=== PATIENT | female | born 1965 | race Caucasian/White ===

== ENCOUNTER → 2017-12-04 | Outpatient (CLI) | payer OTHER | END | disposition home or self-care (01) | LOC: KCIC 11:05 | DX: M43.22 Fusion of spine, cervical region (principal) | CPT/HCPCS: 71046 ==

== ENCOUNTER 2021-07-15 08:37 | Inpatient (IN) | payer SELFPAY ==
[~2021-07-15] VITALS: Ht 170.2 cm; Wt 97.6 kg
[~2021-07-15 08:37] MED LIST: ALPR0.5T PO; ASCO100065 PO; CYCL10TA2 PO; DIPH25CA58 PO; DOCU50CA9 PO; GABA-585 PO; IBUP-1060 PO; LACT1CAP8 PO; LORA10TA3 PO; MULT-445 PO; OXYC1TAB19 PO; OXYC1TAB22 PO; PANT40TA77 PO; PEDI100T PO
[2021-07-15] MEDS ORDERED: IV NORMAL SALINE 1000ML BAG 1,000 ML IV ONE (09:00)
[2021-07-15] MEDS ORDERED: ONDANSETRON PF 4 MG/2 ML VIAL. IVP ONE (09:00)
[2021-07-15] MEDS ORDERED: MORPHINE SULFATE 4 MG/ML INJ. IVP ONE (09:00)
[2021-07-15 09:11] LABS: BASO # 0.1 x10^3/uL (0.0-0.2); BASO % 1 % (0-3); EOS % 0 % (0-3); HEMATOCRIT 42.7 % (36.0-47.0); HEMOGLOBIN 14.8 g/dL (12.0-15.5); LYMPH # 2.5 x10^3/uL (1.0-4.8); LYMPH % 10 % (24-48); MEAN CORPUSCULAR HEMOGLOBIN 30 pg (25-35); MEAN CORPUSCULAR HGB CONC 35 g/dL (31-37); MEAN CORPUSCULAR VOLUME 86 fL (79-100); MONO # 1.6 x10^3/uL (0.0-1.1); MONO % 6 % (0-9); NEUT # 20.6 x10^3/uL (1.8-7.7); NEUT % 83 % (31-73); PLATELET COUNT 312 x10^3/uL (140-400); RED BLOOD COUNT 4.96 x10^6/uL (3.50-5.40); RED CELL DISTRIBUTION WIDTH 13.5 % (11.5-14.5); WHITE BLOOD COUNT 24.9 x10^3/uL (4.0-11.0)
[2021-07-15] MEDS ORDERED: CONTRAST GIVEN. MC PRN (09:15)
[2021-07-15] MEDS ORDERED: IOHEXOL 350 MG/ML 100 ML VIAL. IV ONE (09:15)
[2021-07-15 09:19] LABS: CALCIUM 9.1 mg/dL (8.5-10.1); CREATININE 1.3 mg/dL (0.6-1.0); GFR 42.2; POTASSIUM 3.3 mmol/L (3.5-5.1)
[2021-07-15 09:24] LABS: ALBUMIN 3.6 g/dL (3.4-5.0); TOTAL BILIRUBIN 0.6 mg/dL (0.2-1.0); TOTAL PROTEIN 7.2 g/dL (6.4-8.2)
--- NOTE | 2021-07-15 09:29 | PHYS DOC ---
Past Medical History Additional Past Medical Histor: CHRONIC BACK PAIN, MALROTATION OF DUODENUM Past Surgical History: Appendectomy, Cholecystectomy Smoking Status: Never Smoker Alcohol Use: Occasionally General Adult EDM: Chief Complaint: RECTAL BLEED HPI: HPI: Patient is a 56 year old female with history of HTN, HLD, chronic back pain who presents with acute onset abdominal pain and hematochezia. Onset of pain was yesterday afternoon at approximately 2 PM. Started off intensely in the left lower quadrant. Has become more generalized. Associated with bright red rectal bleeding. States it has been quite a lot of rectal bleeding. She has had small amounts of rectal bleeding in the past but nothing similar to this. She had a normal colonoscopy approximately 7 years ago. She has had nausea but no vomiting. She has had exceedingly poor appetite. Pain started right after eating lunch yesterday. Has only had 4 crackers and some water since. Not on any blood thinners. No history of A. fib, coagulopathy, CVA, CAD, or PAD. No urinary sx. She does have a surgical history of correction of duodenal malrotation, cholecystectomy, and appendectomy. Review of Systems: Review of Systems: Constitutional: Denies fever or chills. [] Eyes: Denies change in visual acuity. [] HENT: Denies nasal congestion or sore throat. [] Respiratory: Denies cough or shortness of breath. [] Cardiovascular: Denies chest pain or edema. [] GI: Reports abdominal pain, nausea, bloody stools. Denies vomiting. [] : Denies dysuria. [] Musculoskeletal: Denies back pain or joint pain. [] Integument: Denies rash. [] Neurologic: Denies headache, focal weakness or sensory changes. [] Endocrine: Denies polyuria or polydipsia. [] Lymphatic: Denies swollen glands. [] Psychiatric: Denies depression or anxiety. [] Heart Score: C/O Chest Pain: No Risk Factors: Risk Factors: DM, Current or recent (<one month) smoker, HTN, HLP, family history of CAD, obesity. Risk Scores: Score 0 - 3: 2.5% MACE over next 6 weeks - Discharge Home Score 4 - 6: 20.3% MACE over next 6 weeks - Admit for Clinical Observation Score 7 - 10: 72.7% MACE over next 6 weeks - Early Invasive Strategies Current Medications: Current Medications Medications (Trade) Dose Ordered Sig/Tiara Start Time Stop Time Status Last Admin Dose Admin Info (CONTRAST GIVEN -- Rx MONITORING) 1 each PRN DAILY PRN 07/15/21 09:15 07/17/21 09:14 Iohexol (Omnipaque 350 Mg/ml) 90 ml 1X ONCE 07/15/21 09:15 07/15/21 09:16 DC Morphine Sulfate (Morphine Sulfate) 4 mg 1X ONCE 07/15/21 09:00 07/15/21 09:01 DC Ondansetron HCl (Zofran) 4 mg 1X ONCE 07/15/21 09:00 07/15/21 09:01 DC Sodium Chloride 1,000 ml @ 1,000 mls/hr 1X ONCE 07/15/21 09:00 07/15/21 09:59 Allergies: Allergies: Allergies Coded Allergies Type Severity Reaction Last Updated Verified Tetanus Vaccines and Toxoid Allergy Intermediate 10/20/14 Yes amoxicillin Allergy Intermediate light headed gi upset 10/20/14 Yes hydromorphone Allergy Intermediate itching puritis 10/20/14 Yes levalbuterol Allergy Intermediate hypertension 10/20/14 Yes levofloxacin Allergy Intermediate joint pain 10/13/14 Yes metaxalone Allergy Intermediate rash 10/13/14 Yes morphine Allergy Intermediate vomiting 10/13/14 Yes nabumetone Allergy Intermediate chest pressure 10/13/14 Yes nitrofurantoin Allergy Intermediate perepheral neuropathy 10/13/14 Yes pregabalin Allergy Intermediate rash 10/13/14 Yes telithromycin Allergy Intermediate blurred vision 10/13/14 Yes zolpidem Allergy Intermediate chest pain cough sob 10/13/14 Yes potassium Adverse Reaction Intermediate BURNING WITH IV 10/13/14 Yes Physical Exam: PE: Constitutional: Appears uncomfortable. [] HENT: Normocephalic, atraumatic [] Eyes: conjunctiva normal, no discharge. [] Neck: Normal range of motion, no tenderness, supple, no stridor. [] Cardiovascular:Heart rate regular rhythm, no murmur [] Lungs & Thorax: Bilateral breath sounds clear to auscultation [] Abdomen: Abdomen soft, reports diffuse abdominal tenderness. No rebound. Slight involuntary guarding. [] Extremities: No tenderness, no cyanosis, no clubbing, ROM intact, no edema. [] Neurologic: Alert and oriented X 3, normal motor function, normal sensory function, no focal deficits noted. [] Psychologic: Affect normal, judgement normal, mood normal. [] Current Patient Data: Labs: Laboratory Tests Test 07/15/21 09:00 White Blood Count 24.9 x10^3/uL (4.0-11.0) H Red Blood Count 4.96 x10^6/uL (3.50-5.40) Hemoglobin 14.8 g/dL (12.0-15.5) Hematocrit 42.7 % (36.0-47.0) Mean Corpuscular Volume 86 fL (79-100) Mean Corpuscular Hemoglobin 30 pg (25-35) Mean Corpuscular Hemoglobin Concent 35 g/dL (31-37) Red Cell Distribution Width 13.5 % (11.5-14.5) Platelet Count 312 x10^3/uL (140-400) Neutrophils (%) (Auto) 83 % (31-73) H Lymphocytes (%) (Auto) 10 % (24-48) L Monocytes (%) (Auto) 6 % (0-9) Eosinophils (%) (Auto) 0 % (0-3) Basophils (%) (Auto) 1 % (0-3) Neutrophils # (Auto) 20.6 x10^3/uL (1.8-7.7) H Lymphocytes # (Auto) 2.5 x10^3/uL (1.0-4.8) Monocytes # (Auto) 1.6 x10^3/uL (0.0-1.1) H Eosinophils # (Auto) 0.0 x10^3/uL (0.0-0.7) Basophils # (Auto) 0.1 x10^3/uL (0.0-0.2) Platelet Estimate Pending Sodium Level 140 mmol/L (136-145) Potassium Level 3.3 mmol/L (3.5-5.1) L Chloride Level 102 mmol/L (98-107) Carbon Dioxide Level 25 mmol/L (21-32) Anion Gap 13 (6-14) Blood Urea Nitrogen 22 mg/dL (7-20) H Creatinine 1.3 mg/dL (0.6-1.0) H Estimated GFR (Cockcroft-Gault) 42.2 BUN/Creatinine Ratio 17 (6-20) Glucose Level 167 mg/dL (70-99) H Calcium Level 9.1 mg/dL (8.5-10.1) Total Bilirubin Pending Aspartate Amino Transferase (AST) Pending Alanine Aminotransferase (ALT) Pending Alkaline Phosphatase Pending Total Protein Pending Albumin Pending Albumin/Globulin Ratio Pending Laboratory Tests 07/15/21 09:00 Laboratory Tests 07/15/21 09:00 Vital Signs: Vital Signs Date Time Temp Pulse Resp B/P (MAP) Pulse Ox O2 Delivery O2 Flow Rate FiO2 07/15/21 09:01 99.4 95 20 127/67 (87) 96 Room Air 99.4 EKG: EKG: Sinus rhythm. Rate 87. Normal axis. Normal intervals. No acute ischemic changes [] Radiology/Procedures: Radiology/Procedures: [] Impression: [id number] [place] [address] IMAGING REPORT Signed PATIENT: OTTO DC LACCOUNT: [id number] : 1965 LOCATION: ER AGE: 56 SEX: F EXAM STATUS: REG ER ORD. PHYSICIAN: JESUS JAMES MD REASON: sudden onset pain, hematochezia, eval mesenteric ischemia PROCEDURE: CT ANGIOGRAPHY ABD AND PELVIS CTA ABDOMEN AND PELVIS WITHOUT IV CONTRAST dated 07/15/2021 9:32 AM Indication:Reason: sudden onset pain, hematochezia, eval mesenteric ischemia / Comparison: No comparison is available. Technique: Helical CTA was performed through the abdomen and pelvis using an infusion of 75 mL Omnipaque 350. Multiplanar and 3-D reformations were obtained. One or more of the following individualized dose reduction techniques were utili zed for this examination: 1. Automated exposure control 2. Adjustment of the mA and/or kV according to patient size 3. Use of iterative reconstruction technique Findings: There is mild dependent atelectasis. The lung bases otherwise are clear. The abdominal aorta is normal in caliber and shows no significant atherosclerosis. The celiac and SMA are widely patent without atherosclerosis. No filling defect such as embolus is seen extending to the distal branches. The LAVERN is patent as well. The renal arteries show no plaque or stenosis. The iliac segments appear normal. The liver contains a cyst in the left lobe. The liver, spleen, pancreas, kidneys and adrenal glands otherwise appear normal. There is a small amount of free fluid adjacent to the liver. The colon shows diffuse wall thickening beginning apparently in the ascending segment but becoming most evident in the distal transverse and descending segment. There is adjacent edema. The cecum is apparently low lying and at the midline in the upper pelvis. There is no evidence of bowel obstruction. No intraluminal contrast extravasation is seen. Images through the pelvis show no abnormality of the distal ureters or bladder. No adenopathy is seen. There is mild free fluid. Colon wall thickening since through the sigmoid colon apparently to the rectum. IMPRESSION: Normal CTA abdomen and pelvis. Diffuse colon wall thickening consistent with nonspecific colitis. Electronically signed by: Chandni Murdock Jr., MD (07/15/2021 10:08 AM) [id number] DICTATED and SIGNED BY: CHANDNI MURDOCK Jr, MD DATE: 07/15/21 [id number] 0 Course & Med Decision Making: Course & Med Decision Making Pertinent Labs and Imaging studies reviewed. (See chart for details) Patient is a 56-year-old woman with past medical history of HTN, HLD, IBS, and surgical history of a correction of duodenal malrotation, cholecystectomy, and appendectomy who presents with acute onset abdominal pain and hematochezia yesterday. On arrival is hemodynamically stable. Appears acutely uncomfortable and has diffuse abdominal tenderness to palpation. Given acute onset and hematochezia considered mesenteric ischemia, ischemic colitis, diverticulitis. Will obtain CTA of the abdomen pelvis to evaluate for acute cause of abdominal pain and specifially for vascular occlusion. [address] shows diffuse colitis. White blood cell count elevated, mild HARSHA, appears dry on labs. Otherwise normal. She has no other infectious symptoms, so I have held on antibiotics. At this time it seems most likely ischemic versus infectious colitis. Will be admitted to the hospital for further management. Phillip Mackay Disclaimer: Thompson Disclaimer: This electronic medical record was generated, in whole or in part, using a voice recognition dictation system. Departure Departure Impression: Primary Impression: Colitis Additional Impressions: Hematochezia Abdominal pain Disposition: ADMITTED INPATIENT Condition: STABLE Referrals: VANNESA MOCK NP (PCP) JESUS JAMES MD Jul 15, 2021 09:29
[2021-07-15] MEDS ORDERED: fentaNYL PF VIAL 100 MCG/2 ML VIAL IVP ONE (09:30)
--- NOTE | 2021-07-15 10:11 | RAD ---
CTA ABDOMEN AND PELVIS WITHOUT IV CONTRAST dated 07/15/2021 9:32 AM Indication:Reason: sudden onset pain, hematochezia, eval mesenteric ischemia / Comparison: No comparison is available. Technique: Helical CTA was performed through the abdomen and pelvis using an infusion of 75 mL Omnipa que 350. Multiplanar and 3-D reformations were obtained. One or more of the following individualized dose reduction techniques were utilized for this examinat ion: 1. Automated exposure control 2. Adjustment of the mA and/or kV according to patient size 3. Use of iterative reconstruction technique Findings: There is mild dependent atelectasis. The lung bases otherwise are clear. The abdominal aorta is janine l in caliber and shows no significant atherosclerosis. The celiac and SMA are widely patent without a therosclerosis. No filling defect such as embolus is seen extending to the distal branches. The LAVERN i s patent as well. The renal arteries show no plaque or stenosis. The iliac segments appear normal. The liver contains a cyst in the left lobe. The liver, spleen, pancreas, kidneys and adrenal glands o therwise appear normal. There is a small amount of free fluid adjacent to the liver. The colon shows diffuse wall thickening beginning apparently in the ascending segment but becoming most evident in th e distal transverse and descending segment. There is adjacent edema. The cecum is apparently low lyin g and at the midline in the upper pelvis. There is no evidence of bowel obstruction. No intraluminal contrast extravasation is seen. Images through the pelvis show no abnormality of the distal ureters or bladder. No adenopathy is seen . There is mild free fluid. Colon wall thickening since through the sigmoid colon apparently to the r ectum. IMPRESSION: Normal CTA abdomen and pelvis. Diffuse colon wall thickening consistent with nonspecific colitis. Electronically signed by: Ivan Murdock Jr., MD (07/15/2021 10:08 AM) [id number]
[2021-07-15 10:20] LABS: % BANDS 15 % (0-9); % LYMPHS 7 % (24-48); % METAS 1 % (0-0); % MONOS 4 % (0-10); % SEGS 73 % (35-66)
[2021-07-15 10:21] LABS: PLT ESTIMATE ADEQUATE (ADEQUATE); SMUDGE CELLS PRESENT; TOXIC GRANULATION SLIGHT
[2021-07-15] MEDS ORDERED: MORPHINE SULFATE 4 MG/ML INJ. IVP PRN (10:30)
[2021-07-15] MEDS ORDERED: ONDANSETRON PF 4 MG/2 ML VIAL. IVP PRN ×2 (10:30→14:15)
[2021-07-15 10:49] LABS: BILIRUBIN,URINE NEGATIVE (NEG); CLARITY,URINE CLEAR; COLOR,URINE YELLOW; NITRITE,URINE NEGATIVE (NEG); PROTEIN,URINE NEGATIVE (NEG-TRACE); UROBILINOGEN,URINE 0.2 mg/dL (0.2 mg/dL)
[2021-07-15 11:02] LABS: BACTERIA,URINE FEW /HPF (0-FEW)
[2021-07-15] MEDS ORDERED: ACETAMINOPHEN 325 MG TABLET. PO PRN (14:15)
[2021-07-15] MEDS ORDERED: MORPHINE SULFATE 2 MG/ML INJ. IV PRN ×2 (14:15)
[2021-07-15] MEDS ORDERED: PIP/TAZO PER PHARMACY MC PRN (14:15)
[2021-07-15] MEDS ORDERED: ZOLPIDEM 5 MG TABLET. PO PRN (14:15)
[2021-07-15] MEDS ORDERED: CALCIUM CARBONATE 500 MG TAB.CHEW PO PRN (14:15)
[2021-07-15] MEDS ORDERED: ELECTROLYTE (NON-ICU) PROTOCOL. MC PRN (14:15)
[2021-07-15] MEDS ORDERED: CETIRIZINE HCL 10 MG TABLET. PO PRN (14:30)
[2021-07-15] MEDS: IV NORMAL SALINE 1000ML BAG 1,000 ML IV SCH (15:12)
[2021-07-15] MEDS: PIPERACILLIN/TAZOBACTAM 3.375 GM in IV NORMAL SALINE 50ML 50 ML IV SCH ×2 (15:13→19:29)
[2021-07-15] MEDS: PANTOPRAZOLE IV PUSH 40 MG VIAL. IVP SCH (15:18)
--- NOTE | 2021-07-15 16:00 | PDOC1 ---
History and Physical Date of Service: DOS: DATE: 07/15/21 TIME: 15:53 Chief Complaint: Problems: (1) Abdominal pain (2) Colitis (3) Hematochezia Chief Complain: Hematochezia History of Present Illness: HPI: This patient is a 56-year-old female who presented to the emergency room this morning due to 1 day history of hematochezia. Patient's is currently admitted to this hospital and she was here visiting him yesterday and ate a salad for lunch. Said a few hours after eating she started to have lower quadrant abdominal pain. Initially left lower quadrant but spread out. Had a bowel movement that evening and it was full of bright red blood. Initially did not present to the emergency room however she had another bloody bowel movement this morning and presented the emergency room. Patient found to have colitis on CT scan. She had 1 further bloody bowel movement in the emergency room. Leukocytosis up to 24. When I evaluated the patient she was resting in bed reporting some ongoing abdominal pain. She told me that she went to the bathroom about an hour ago and there was no blood in it. Still having a fair bit of abdominal pain. Patient denies any history of diverticulitis. She had a correction of a duodenal malrotation many years ago. Normal colonoscopy 7 years ago. Was denying any sort of headache, vision changes, fevers, chest pain, shortness of breath dysuria or joint pain. Past Medical/Surgical History: PMH/PSH: Hypertension, hyperlipidemia, chronic back pain Allergies: Allergies: Coded Allergies: Tetanus Vaccines and Toxoid (Verified Allergy, Intermediate, 10/20/14) amoxicillin (Verified Allergy, Intermediate, light headed gi upset, 10/20/14) hydromorphone (Verified Allergy, Intermediate, itching puritis, 10/20/14) levalbuterol (Verified Allergy, Intermediate, hypertension, 10/20/14) levofloxacin (Verified Allergy, Intermediate, joint pain, 10/13/14) metaxalone (Verified Allergy, Intermediate, rash, 10/13/14) nabumetone (Verified Allergy, Intermediate, chest pressure, 10/13/14) nitrofurantoin (Verified Allergy, Intermediate, perepheral neuropathy, 10/13/14) pregabalin (Verified Allergy, Intermediate, rash, 10/13/14) telithromycin (Verified Allergy, Intermediate, blurred vision, 10/13/14) zolpidem (Verified Allergy, Intermediate, chest pain cough sob, 10/13/14) Family History: Family History: Hypertension Social History: Social History: Occasional alcohol use; denies Bacot or drug use Current Medications: Current Medications Current Medications Sodium Chloride 1,000 ml @ 1,000 mls/hr 1X ONCE IV Last administered on 07/15/21at 09:30; Start 07/15/21 at 09:00; Stop 07/15/21 at 09:59; Status DC Ondansetron HCl (Zofran) 4 mg 1X ONCE IVP Last administered on 07/15/21at 09:29; Start 07/15/21 at 09:00; Stop 07/15/21 at 09:01; Status DC Morphine Sulfate (Morphine Sulfate) 4 mg 1X ONCE IVP Last administered on 07/15/21at 10:33; Start 07/15/21 at 09:00; Stop 07/15/21 at 09:01; Status DC Iohexol (Omnipaque 350 Mg/ml) 90 ml 1X ONCE IV Last administered on 07/15/21at 09:15; Start 07/15/21 at 09:15; Stop 07/15/21 at 09:16; Status DC Info (CONTRAST GIVEN -- Rx MONITORING) 1 each PRN DAILY PRN MC SEE COMMENTS; Start 07/15/21 at 09:15; Stop 07/17/21 at 09:14 Fentanyl Citrate (Fentanyl 2ml Vial) 100 mcg 1X ONCE IVP Last administered on 07/15/21at 09:29; Start 07/15/21 at 09:30; Stop 07/15/21 at 09:31; Status DC Ondansetron HCl (Zofran) 4 mg PRN Q8HRS PRN IVP NAUSEA/VOMITING Last administered on 07/15/21at 10:32; Start 07/15/21 at 10:30; Stop 07/16/21 at 10:29 Morphine Sulfate (Morphine Sulfate) 4 mg PRN Q2HR PRN IVP PAIN; Start 07/15/21 at 10:30; Stop 07/16/21 at 10:29 Piperacillin Sod/ Tazobactam Sod (Zosyn Per Pharmacy) 1 each PRN DAILY PRN MC SEE COMMENTS; Start 07/15/21 at 14:15 Ondansetron HCl (Zofran) 4 mg PRN Q6HRS PRN IVP NAUSEA/VOMITING; Start 07/15/21 at 14:15 Calcium Carbonate/ Glycine (Tums) 500 mg PRN Q3HRS PRN PO UPSET STOMACH; Start 07/15/21 at 14:15 Zolpidem Tartrate (Ambien) 5 mg PRN QHS PRN PO INSOMNIA, MAY REPEAT IN 1HR; Start 07/15/21 at 14:15 Info (Non-Icu Electrolyte Protocol) 1 ea PRN DAILY PRN MC SEE COMMENTS; Start 07/15/21 at 14:15 Oxycodone HCl (Roxicodone) 5 mg PRN Q3HRS PRN PO BREAKTHROUGH PAIN; Start 07/15/21 at 14:15 Morphine Sulfate (Morphine Sulfate) 1 mg PRN Q1HR PRN IV PAIN; Start 07/15/21 at 14:15 Morphine Sulfate (Morphine Sulfate) 2 mg PRN Q1HR PRN IV PAIN Last administered on 07/15/21at 15:14; Start 07/15/21 at 14:15 Acetaminophen (Tylenol) 650 mg PRN Q6HRS PRN PO Headaches, Temp > 101.5F; Start 07/15/21 at 14:15 Senna/Docusate Sodium (Senna Plus) 1 tab BID PO ; Start 07/15/21 at 21:00 Alprazolam (Xanax) 0.5 mg TID PRN PRN PO ANXIETY / AGITATION; Start 07/15/21 at 14:15 Cyclobenzaprine HCl (Flexeril) 10 mg TID PRN PRN PO MUSCLE SPASMS; Start 07/15/21 at 14:15 Cetirizine HCl (ZyrTEC) 10 mg PRN QHS PRN PO ALLERGIES; Start 07/15/21 at 14:30 Pantoprazole Sodium (PROTONIX VIAL for IV PUSH) 40 mg DAILYAC IVP Last administered on 07/15/21at 15:18; Start 07/15/21 at 15:00 Sodium Chloride 1,000 ml @ 150 mls/hr Q6H40M IV Last administered on 07/15/21at 15:12; Start 07/15/21 at 14:15 Piperacillin Sod/ Tazobactam Sod 3.375 gm/Sodium Chloride 50 ml @ 100 mls/hr Q6HRS IV Last administered on 07/15/21at 15:13; Start 07/15/21 at 15:00 Active Scripts Active Reported Percocet 10-325 Mg Tablet (Oxycodone/Acetaminophen) 1 Each Tablet 1 Tab PO PRN Q6HRS PRN Ibuprofen 800 Mg Tablet 800 Mg PO TID PRN Do not take this medication. Do not take until okayed by Dr. Bales. Pantoprazole Sodium (Pantoprazole Sodium) 40 Mg Tablet.dr 20 Mg PO DAILY Last dose 10/21/14 at 9 am. Next dose due 10/22/14 at 9 am. Loratadine 10 Mg Tablet 10 Mg PO HS PRN Last dose 10/20/14 at 9 pm. Next dose due 10/21/14 at 9 pm. Xanax (Alprazolam) 0.5 Mg Tablet 0.5 Mg PO TID PRN Last dose 10/20/14 at 7:45 pm next dose may be taken any time as directed by doctor. Cyclobenzaprine Hcl 10 Mg Tablet 10 Mg PO TID PRN Last dose 10/21/14 at 4:30 am. Next dose may be taken any time as directed by doctor. ROS: Review of Systems Review of System Negative unless in HPI Physical Exam: Vital Signs: Vital Signs Date Time Temp Pulse Resp B/P (MAP) Pulse Ox O2 Delivery O2 Flow Rate FiO2 07/15/21 15:14 98 07/15/21 13:00 74 16 100/49 (66) Room Air 07/15/21 09:01 99.4 99.4 Physcial Exam: GEN: Mild distress but alert and oriented HEENT: Normal cephalic, atraumatic, external auditory canals are patent EYES: Extraocular muscles are intact, pupil are equally round and reactive to light and accommodation MUSCULOSKELETAL: Well developed , well nourished, good range of motion ENDOCRINE: No thyromegaly was palpated LYMPHATICS: No cervical chain or axillary nodes were noted HEMATOPOIETIC: No bruising NECK: Supple, no JVD, no thyromegaly was noted LUNGS: Clear to auscultation in all lung robert without rhonchi or wheezing HEART: RRR, S1, S2 present. Peripheral pulses intact, no obvious murmurs noted ABDOMEN: Generalized tenderness, bowel sounds present, no appreciable hepatomegaly EXTREMITIES: Without clubbing, cyanosis, or edema. Pedal pulses intact. NEUROLOGIC: Normal speech and tone. A&O x 3, moves all extremities, no obvious focal deficits PSYCHIATRIC: Normal affect, normal mood. Stable SKIN: No ulcerations or rashes, good skin turgor, no jaundice VASCULAR: Good capillary refill, neurovascular bundle appears to be intact Labs: Labs: Laboratory Tests Test 07/15/21 09:00 07/15/21 10:40 White Blood Count 24.9 x10^3/uL (4.0-11.0) Red Blood Count 4.96 x10^6/uL (3.50-5.40) Hemoglobin 14.8 g/dL (12.0-15.5) Hematocrit 42.7 % (36.0-47.0) Mean Corpuscular Volume 86 fL (79-100) Mean Corpuscular Hemoglobin 30 pg (25-35) Mean Corpuscular Hemoglobin Concent 35 g/dL (31-37) Red Cell Distribution Width 13.5 % (11.5-14.5) Platelet Count 312 x10^3/uL (140-400) Neutrophils (%) (Auto) 83 % (31-73) Lymphocytes (%) (Auto) 10 % (24-48) Monocytes (%) (Auto) 6 % (0-9) Eosinophils (%) (Auto) 0 % (0-3) Basophils (%) (Auto) 1 % (0-3) Neutrophils # (Auto) 20.6 x10^3/uL (1.8-7.7) Lymphocytes # (Auto) 2.5 x10^3/uL (1.0-4.8) Monocytes # (Auto) 1.6 x10^3/uL (0.0-1.1) Eosinophils # (Auto) 0.0 x10^3/uL (0.0-0.7) Basophils # (Auto) 0.1 x10^3/uL (0.0-0.2) Segmented Neutrophils % 73 % (35-66) Band Neutrophils % 15 % (0-9) Lymphocytes % 7 % (24-48) Monocytes % 4 % (0-10) Metamyelocytes % 1 % (0-0) Smudge Cells Present Toxic Granulation Slight Platelet Estimate Adequate (ADEQUATE) Sodium Level 140 mmol/L (136-145) Potassium Level 3.3 mmol/L (3.5-5.1) Chloride Level 102 mmol/L (98-107) Carbon Dioxide Level 25 mmol/L (21-32) Anion Gap 13 (6-14) Blood Urea Nitrogen 22 mg/dL (7-20) Creatinine 1.3 mg/dL (0.6-1.0) Estimated GFR (Cockcroft-Gault) 42.2 BUN/Creatinine Ratio 17 (6-20) Glucose Level 167 mg/dL (70-99) Lactic Acid Level 1.9 mmol/L (0.4-2.0) Calcium Level 9.1 mg/dL (8.5-10.1) Total Bilirubin 0.6 mg/dL (0.2-1.0) Aspartate Amino Transf (AST/SGOT) 19 U/L (15-37) Alanine Aminotransferase (ALT/SGPT) 26 U/L (14-59) Alkaline Phosphatase 45 U/L (46-116) Total Protein 7.2 g/dL (6.4-8.2) Albumin 3.6 g/dL (3.4-5.0) Albumin/Globulin Ratio 1.0 (1.0-1.7) Urine Collection Type Unknown Urine Color Yellow Urine Clarity Clear Urine pH 5.0 (<5.0-8.0) Urine Specific [place] >=1.030 (1.000-1.030) Urine Protein Negative mg/dL (NEG-TRACE) Urine Glucose (UA) Negative mg/dL (NEG) Urine Ketones (Stick) Negative mg/dL (NEG) Urine Blood Large (NEG) Urine Nitrite Negative (NEG) Urine Bilirubin Negative (NEG) Urine Urobilinogen Dipstick 0.2 mg/dL (0.2 mg/dL) Urine Leukocyte Esterase Negative (NEG) Urine RBC 6-10 /HPF (0-2) Urine WBC 1-4 /HPF (0-4) Urine Squamous Epithelial Cells Mod /LPF Urine Bacteria Few /HPF (0-FEW) Urine Mucus Mod /LPF Laboratory Tests Test 07/15/21 09:00 07/15/21 10:40 White Blood Count 24.9 x10^3/uL (4.0-11.0) Red Blood Count 4.96 x10^6/uL (3.50-5.40) Hemoglobin 14.8 g/dL (12.0-15.5) Hematocrit 42.7 % (36.0-47.0) Mean Corpuscular Volume 86 fL (79-100) Mean Corpuscular Hemoglobin 30 pg (25-35) Mean Corpuscular Hemoglobin Concent 35 g/dL (31-37) Red Cell Distribution Width 13.5 % (11.5-14.5) Platelet Count 312 x10^3/uL (140-400) Neutrophils (%) (Auto) 83 % (31-73) Lymphocytes (%) (Auto) 10 % (24-48) Monocytes (%) (Auto) 6 % (0-9) Eosinophils (%) (Auto) 0 % (0-3) Basophils (%) (Auto) 1 % (0-3) Neutrophils # (Auto) 20.6 x10^3/uL (1.8-7.7) Lymphocytes # (Auto) 2.5 x10^3/uL (1.0-4.8) Monocytes # (Auto) 1.6 x10^3/uL (0.0-1.1) Eosinophils # (Auto) 0.0 x10^3/uL (0.0-0.7) Basophils # (Auto) 0.1 x10^3/uL (0.0-0.2) Segmented Neutrophils % 73 % (35-66) Band Neutrophils % 15 % (0-9) Lymphocytes % 7 % (24-48) Monocytes % 4 % (0-10) Metamyelocytes % 1 % (0-0) Smudge Cells Present Toxic Granulation Slight Platelet Estimate Adequate (ADEQUATE) Sodium Level 140 mmol/L (136-145) Potassium Level 3.3 mmol/L (3.5-5.1) Chloride Level 102 mmol/L (98-107) Carbon Dioxide Level 25 mmol/L (21-32) Anion Gap 13 (6-14) Blood Urea Nitrogen 22 mg/dL (7-20) Creatinine 1.3 mg/dL (0.6-1.0) Estimated GFR (Cockcroft-Gault) 42.2 BUN/Creatinine Ratio 17 (6-20) Glucose Level 167 mg/dL (70-99) Lactic Acid Level 1.9 mmol/L (0.4-2.0) Calcium Level 9.1 mg/dL (8.5-10.1) Total Bilirubin 0.6 mg/dL (0.2-1.0) Aspartate Amino Transf (AST/SGOT) 19 U/L (15-37) Alanine Aminotransferase (ALT/SGPT) 26 U/L (14-59) Alkaline Phosphatase 45 U/L (46-116) Total Protein 7.2 g/dL (6.4-8.2) Albumin 3.6 g/dL (3.4-5.0) Albumin/Globulin Ratio 1.0 (1.0-1.7) Urine Collection Type Unknown Urine Color Yellow Urine Clarity Clear Urine pH 5.0 (<5.0-8.0) Urine Specific [place] >=1.030 (1.000-1.030) Urine Protein Negative mg/dL (NEG-TRACE) Urine Glucose (UA) Negative mg/dL (NEG) Urine Ketones (Stick) Negative mg/dL (NEG) Urine Blood Large (NEG) Urine Nitrite Negative (NEG) Urine Bilirubin Negative (NEG) Urine Urobilinogen Dipstick 0.2 mg/dL (0.2 mg/dL) Urine Leukocyte Esterase Negative (NEG) Urine RBC 6-10 /HPF (0-2) Urine WBC 1-4 /HPF (0-4) Urine Squamous Epithelial Cells Mod /LPF Urine Bacteria Few /HPF (0-FEW) Urine Mucus Mod /LPF Assessment/Plan Assessment/Plan Hematochezia secondary to colitis, abdominal pain, hypertension, hyperlipidemia -1 day history of hematochezia with abdominal pain; patient says she does have a hemorrhoid -Patient says she will occasionally take Bentyl for abdominal cramps -Emergency room patient has colitis on imaging and elevated white blood cell count; no sign of ischemic bowel or diverticulitis -We will start patient on Zosyn for broad intra-abdominal coverage -GI consulted -Pain control ordered -We will do clear liquid diet tonight -DVT prophylaxis -Home meds resumed as indicated Justifications for Admission Other Justification TOMY RIDER MD Jul 15, 2021 16:00
[2021-07-15] MEDS ORDERED: DICYCLOMINE HCL 10 MG CAPSULE PO PRN (17:30)
[2021-07-15] MEDS: oxyCODONE IR 5 MG TABLET PO PRN ×2 (17:30→20:43)
--- NOTE | 2021-07-15 18:50 | EKG ---
[facility] [address] [place] [address] Test Date: 2021-07-15 Test Time: 09:52:37 Pat Name: OTTO DC Department: Room: [facility] Gender: F Accounting Supervisor: : [id number] Requested By: JESUS JAMES Order Number: [id number] Reading MD: Hero Montoya Measurements Intervals [place] Rate: 87 P: 51 ID: [id number] QRS: 36 QRSD: 96 T: 20 QT: 366 QTc: 441 Interpretive Statements SINUS RHYTHM Electronically Signed On 07-17-2021 13:25:38 CDT by Hero Montoya
[2021-07-15 19:00] VITALS: BP 106/32
[2021-07-15] MEDS: CYCLOBENZAPRINE 10 MG TABLET. PO PRN (20:42)
[2021-07-15] MEDS: ALPRAZolam 0.5 MG TABLET PO PRN (20:43)
[2021-07-15] MEDS: SENNOSIDES/DOCUSATE 8.6/50MG TABLET. PO SCH (21:00)
[2021-07-15 22:56] VITALS: BP 110/38
[2021-07-16] VITALS (7 sets, daily range): BP systolic 88–112; BP diastolic 22–40
[2021-07-16] MEDS: PIPERACILLIN/TAZOBACTAM 3.375 GM in IV NORMAL SALINE 50ML 50 ML IV SCH ×5 (00:30→23:19)
[2021-07-16] MEDS: IV NORMAL SALINE 1000ML BAG 1,000 ML IV SCH ×5 (00:30→23:20)
[2021-07-16] MEDS: oxyCODONE IR 5 MG TABLET PO PRN ×4 (01:53→19:59)
[2021-07-16] MEDS: SENNOSIDES/DOCUSATE 8.6/50MG TABLET. PO SCH (07:34)
[2021-07-16] MEDS: PANTOPRAZOLE IV PUSH 40 MG VIAL. IVP SCH (07:56)
--- NOTE | 2021-07-16 09:43 | PDOC2 ---
GI CONSULT Date of Service: DATE: 07/16/21 TIME: 09:42 Reason For Consult: colitis on CT scan, abd pain HPI: HPI: 56 y/o female ill since [place] afternoon. Had some [id number] IBS symptoms after eating a salad. Sharp pain in LLQ (occurred once), lower abdominal cramping (was severe), a lot of soft stool followed by looser/watery stools - eventually associated w/ red blood, then changed to just blood/no stool. Russell hot and sweaty like she was going to pass out. Labs noted leukocytosis and possible UTI. CT noted nonspecific colitis. Cramping has improved some. Passing small amounts of blood (still without stool). Mentions low blood pressure. Occasional heartburn improved w/ Tums PRN. Occasionally coughs while eating. H/o IBS - cramping and irregular bowel habits improved w/ Bentyl. Denies n/v, constipation, melena, and weight loss. EGD years ago, recalls no significant findings. Colonoscopy ~7 years ago somewhere in [place], possibly showed hemorrhoids. She has had some mild bleeding in the past (hemorrhoid-related?) but not like current symptoms. S/p cholecystectomy. Denies liver, pancreas, and PUD history. CT noted left hepatic lobe cyst. Chronic pain on Percocet and ibuprofen. Denies sick contacts, travel, and new medications. PMH: PMH: HTN, chronic pain, GERD, IBS cholecystectomy and appendectomy during surgery for duodenal malrotation, diskectomies, cervical fusion, spinal stimulator FH: Family History: Other (mother - gastroparesis, possible MEN; father - required esopahgeal dilations) Social History: Smoke: No ALCOHOL: rare Drugs: None ROS: GEN: +sweats HEENT: Denies blurred vision, sore throat CV: Denies chest pain RESP: Denies shortness of air, cough GI: Per HPI : Denies hematuria, dysuria ENDO: Denies weight changes NEURO: +felt faint MSK: +chronic neck/joint pain SKIN: Denies jaundice, pruritus Vitals: Vitals: Vital Signs Date Time Temp Pulse Resp B/P (MAP) Pulse Ox O2 Delivery O2 Flow Rate FiO2 07/16/21 07:00 98.5 81 18 97/40 (59) 95 Room Air 98.5 Labs: Labs: Laboratory Tests Test 9/12/21 10:40 Urine Collection Type Unknown Urine Color Yellow Urine Clarity Clear Urine pH 5.0 (<5.0-8.0) Urine Specific [place] >=1.030 (1.000-1.030) Urine Protein Negative mg/dL (NEG-TRACE) Urine Glucose (UA) Negative mg/dL (NEG) Urine Ketones (Stick) Negative mg/dL (NEG) Urine Blood Large (NEG) Urine Nitrite Negative (NEG) Urine Bilirubin Negative (NEG) Urine Urobilinogen Dipstick 0.2 mg/dL (0.2 mg/dL) Urine Leukocyte Esterase Negative (NEG) Urine RBC 6-10 /HPF (0-2) Urine WBC 1-4 /HPF (0-4) Urine Squamous Epithelial Cells Mod /LPF Urine Bacteria Few /HPF (0-FEW) Urine Mucus Mod /LPF Allergies: Coded Allergies: Tetanus Vaccines and Toxoid (Verified Allergy, Intermediate, 10/20/14) amoxicillin (Verified Allergy, Intermediate, light headed gi upset, 10/20/14) hydromorphone (Verified Allergy, Intermediate, itching puritis, 10/20/14) levalbuterol (Verified Allergy, Intermediate, hypertension, 10/20/14) levofloxacin (Verified Allergy, Intermediate, joint pain, 10/13/14) metaxalone (Verified Allergy, Intermediate, rash, 10/13/14) nabumetone (Verified Allergy, Intermediate, chest pressure, 10/13/14) nitrofurantoin (Verified Allergy, Intermediate, perepheral neuropathy, 10/13/14) pregabalin (Verified Allergy, Intermediate, rash, 10/13/14) telithromycin (Verified Allergy, Intermediate, blurred vision, 10/13/14) zolpidem (Verified Allergy, Intermediate, chest pain cough sob, 10/13/14) Medications: Current Medications Medications (Trade) Dose Ordered Sig/Tiara Route PRN Reason Start Time Stop Time Status Last Admin Dose Admin Ondansetron HCl (Zofran) 4 mg PRN Q8HRS PRN IVP NAUSEA/VOMITING 07/15/21 10:30 07/16/21 10:29 07/15/21 10:32 Oxycodone HCl (Roxicodone) 5 mg PRN Q3HRS PRN PO BREAKTHROUGH PAIN 07/15/21 14:15 07/16/21 05:34 Morphine Sulfate (Morphine Sulfate) 2 mg PRN Q1HR PRN IV PAIN 07/15/21 14:15 07/15/21 15:14 Alprazolam (Xanax) 0.5 mg TID PRN PRN PO ANXIETY / AGITATION 07/15/21 14:15 07/15/21 20:43 Cyclobenzaprine HCl (Flexeril) 10 mg TID PRN PRN PO MUSCLE SPASMS 07/15/21 14:15 07/15/21 20:42 Pantoprazole Sodium (PROTONIX VIAL for IV PUSH) 40 mg DAILYAC IVP 07/15/21 15:00 07/16/21 07:56 Sodium Chloride 1,000 ml @ 150 mls/hr Q6H40M IV 07/15/21 14:15 07/16/21 07:56 Piperacillin Sod/ Tazobactam Sod 3.375 gm/Sodium Chloride 50 ml @ 100 mls/hr Q6HRS IV 07/15/21 15:00 07/16/21 05:18 Dicyclomine HCl (Bentyl) 20 mg PRN TID PRN PO ABDOMINAL CRAMPS 07/15/21 17:30 07/15/21 17:28 Imaging: Imaging: CTA A/P 07/15 Findings: There is mild dependent atelectasis. The lung bases otherwise are clear. The abdominal aorta is normal in caliber and shows no significant atherosclerosis. The celiac and SMA are widely patent without atherosclerosis. No filling defect such as embolus is seen extending to the distal branches. The LAVERN is patent as well. The renal arteries show no plaque or stenosis. The iliac segments appear normal. The liver contains a cyst in the left lobe. The liver, spleen, pancreas, kidneys and adrenal glands otherwise appear normal. There is a small amount of free fluid adjacent to the liver. The colon shows diffuse wall thickening beginning apparently in the ascending segment but becoming most evident in the distal transverse and descending segment. There is adjacent edema. The cecum is appare ntly low lying and at the midline in the upper pelvis. There is no evidence of bowel obstruction. No intraluminal contrast extravasation is seen. Images through the pelvis show no abnormality of the distal ureters or bladder. No adenopathy is seen. There is mild free fluid. Colon wall thickening since through the sigmoid colon apparently to the rectum. IMPRESSION: Normal CTA abdomen and pelvis. Diffuse colon wall thickening consistent with nonspecific colitis. PE: GEN: NAD HEENT: Atraumatic, PERRL LUNGS: CTAB HEART: RRR ABD: NABS, S/ND, currently non-tender EXTREMITY: No edema SKIN: No rashes, no jaundice NEURO/PSYCH: A & O 3 OTHER: noted light red/watery/yellow liquid collected in toilet A/P: A/P: Diarrhea/hematochezia, lower abdominal pain Leukocytosis, ?HARSHA Abnormal CT - "colitis" - on IV atbx per primary Occasional heartburn CRC screen - reports normal colonoscopy 7 years ago H/o IBS - improved w/ Bentyl S/p cholecystectomy Left hepatic cyst - noted on CT Chronic pain -- ?infectious ?ischemic Check stool studies, follow labs (will order recheck now). Okay for clear liquid diet. Agree w/ PPI - can change to PO. Doesn't need Senna - will stop. THERESA BOSTON Jul 16, 2021 09:43
[2021-07-16 10:29] LABS: CALCIUM 7.5 mg/dL (8.5-10.1); CREATININE 1.2 mg/dL (0.6-1.0); GFR 46.3
[2021-07-16 10:31] LABS: POTASSIUM 2.7 mmol/L (3.5-5.1)
--- NOTE | 2021-07-16 10:38 | NUR ---
SW following. Discussed with RN, pt from home with , room air, clear liquid diet. COVID-19 negative. Med Assist following for self pay status. SW will continue to follow.
[2021-07-16 10:40] LABS: HEMATOCRIT 33.2 % (36.0-47.0); RED BLOOD COUNT 3.74 x10^6/uL (3.50-5.40); RED CELL DISTRIBUTION WIDTH 13.8 % (11.5-14.5); WHITE BLOOD COUNT 16.6 x10^3/uL (4.0-11.0)
[2021-07-16] MEDS ORDERED: POTASSIUM CHLORIDE 20 MEQ TABLET.ER. PO ONE (11:00)
[2021-07-16] MEDS: LACTOBACILLUS RHAMNOSUS GG 1 CAPSULE. PO SCH ×2 (11:55→19:59)
--- NOTE | 2021-07-16 12:14 | PDOC ---
[facility] PROGRESS NOTE Date of Service DOS: DATE: 07/16/21 TIME: 12:07 Chief Complaint Chief Complaint Colitis Hematochezia HTN HLD Plan: Consultation to GI Continue Zosyn for broad intra-abdominal coverage Continue clear liquid diet -DVT prophylaxis -Home meds resumed as indicated History of Present Illness History of Present Illness This patient is a 56-year-old female who presented to the emergency room this morning due to 1 day history of hematochezia. Patient's is currently admitted to this hospital and she was here visiting him yesterday and ate a salad for lunch. Said a few hours after eating she started to have lower quadrant abdominal pain. Initially left lower quadrant but spread out. Had a bowel movement that evening and it was full of bright red blood. Initially did not present to the emergency room however she had another bloody bowel movement this morning and presented the emergency room. Patient found to have colitis on CT scan. She had 1 further bloody bowel movement in the emergency room. Leukocytosis up to 24. When I evaluated the patient she was resting in bed reporting some ongoing abdominal pain. She told me that she went to the bathroom about an hour ago and there was no blood in it. Still having a fair bit of abdominal pain. Patient denies any history of diverticulitis. She had a correction of a duodenal malrotation many years ago. Normal colonoscopy 7 years ago. Was denying any sort of headache, vision changes, fevers, chest pain, shortness of breath dysuria or joint pain. 07/16/2021: Afebrile, currently breathing room air. Still reports episodes of diarrhea; stool studies pending. Patient also complains of cough, headache, and body aches; will swab for COVID-19. Leukocytosis improved; WBC 16.6 today. Potassium 2.7 today, hemoglobin 11.0. Will replace potassium. Continue Zosyn. Continue with clear liquid diet and PPI. Vitals/I&O Vitals/I&O: Vital Signs Date Time Temp Pulse Resp B/P (MAP) Pulse Ox O2 Delivery O2 Flow Rate FiO2 07/16/21 11:20 100/39 (59) 07/16/21 11:00 98.3 81 18 94 Room Air 98.3 I & O 07/15/21 07/15/21 07/16/21 15:00 23:00 07:00 Intake Total 1000 ml 600 ml Balance 1000 ml 600 ml Physical Exam General: Alert, mild distress Heart: Regular rate Lungs: Clear Abdomen: Soft, No hepatosplenomegaly Extremities: No clubbing, No cyanosis Skin: No rashes, No breakdown Labs Labs: Laboratory Tests Test 07/16/21 09:55 White Blood Count 16.6 x10^3/uL (4.0-11.0) Red Blood Count 3.74 x10^6/uL (3.50-5.40) Hemoglobin 11.0 g/dL (12.0-15.5) Hematocrit 33.2 % (36.0-47.0) Mean Corpuscular Volume 89 fL (79-100) Mean Corpuscular Hemoglobin 29 pg (25-35) Mean Corpuscular Hemoglobin Concent 33 g/dL (31-37) Red Cell Distribution Width 13.8 % (11.5-14.5) Platelet Count 206 x10^3/uL (140-400) Sodium Level 142 mmol/L (136-145) Potassium Level 2.7 mmol/L (3.5-5.1) Chloride Level 106 mmol/L (98-107) Carbon Dioxide Level 31 mmol/L (21-32) Anion Gap 5 (6-14) Blood Urea Nitrogen 14 mg/dL (7-20) Creatinine 1.2 mg/dL (0.6-1.0) Estimated GFR (Cockcroft-Gault) 46.3 Glucose Level 135 mg/dL (70-99) Calcium Level 7.5 mg/dL (8.5-10.1) Iron Level 15 ug/dL (50-170) Total Iron Binding Capacity 158 ug/dL (250-450) Iron Saturation 9 % (15-34) Assessment and Plan Assessmemt and Plan Problems Medical Problems: (1) Abdominal pain Status: Acute (2) Colitis Status: Acute (3) Hematochezia Status: Acute Comment Review of Relevant I have reviewed the following items adam (where applicable) has been applied. Medications: Current Medications Medications (Trade) Dose Ordered Sig/Tiara Route PRN Reason Start Time Stop Time Status Last Admin Dose Admin Oxycodone HCl (Roxicodone) 5 mg PRN Q3HRS PRN PO BREAKTHROUGH PAIN 07/15/21 14:15 07/16/21 05:34 Morphine Sulfate (Morphine Sulfate) 2 mg PRN Q1HR PRN IV MODERATE TO SEVERE PAIN 07/15/21 14:15 07/15/21 15:14 Alprazolam (Xanax) 0.5 mg TID PRN PRN PO ANXIETY / AGITATION 07/15/21 14:15 07/15/21 20:43 Cyclobenzaprine HCl (Flexeril) 10 mg TID PRN PRN PO MUSCLE SPASMS 07/15/21 14:15 07/15/21 20:42 Pantoprazole Sodium (PROTONIX VIAL for IV PUSH) 40 mg DAILYAC IVP 07/15/21 15:00 07/16/21 09:45 DC 07/16/21 07:56 Sodium Chloride 1,000 ml @ 150 mls/hr Q6H40M IV 07/15/21 14:15 07/16/21 07:56 Piperacillin Sod/ Tazobactam Sod 3.375 gm/Sodium Chloride 50 ml @ 100 mls/hr Q6HRS IV 07/15/21 15:00 07/16/21 10:26 Dicyclomine HCl (Bentyl) 20 mg PRN TID PRN PO ABDOMINAL CRAMPS 07/15/21 17:30 07/15/21 17:28 Potassium Chloride (Klor-Con) 40 meq 1X ONCE PO 07/16/21 11:00 07/16/21 11:01 DC 07/16/21 11:55 Lactobacillus Rhamnosus (Culturelle) 1 cap BID PO 07/16/21 12:00 07/16/21 11:55 Justifications for Admission Other Justification DENISE JACOBS MD Jul 16, 2021 12:14
[2021-07-16] MEDS: CYCLOBENZAPRINE 10 MG TABLET. PO PRN (15:32)
[2021-07-16] MEDS: POTASSIUM CHLORIDE 10MEQ 100 ML IV SCH ×2 (19:31→21:11)
--- NOTE | 2021-07-16 20:00 | NUR ---
Patient unable to tolerate IV Potassium at 100mls/hr; rate slowed to 50mls/hr. IV site remains WNL and no redness or swelling noted.
[2021-07-16] MEDS: ALPRAZolam 0.5 MG TABLET PO PRN (20:03)
[2021-07-17] MEDS: POTASSIUM CHLORIDE 10MEQ 100 ML IV SCH ×2 (00:02→02:05)
[2021-07-17] MEDS: CYCLOBENZAPRINE 10 MG TABLET. PO PRN ×2 (00:03→22:31)
[2021-07-17] MEDS: oxyCODONE IR 5 MG TABLET PO PRN ×3 (00:03→15:30)
[2021-07-17 03:00] VITALS: BP 109/49
[2021-07-17 04:44] LABS: BASO % 0 % (0-3); EOS # 0.1 x10^3/uL (0.0-0.7); EOS % 1 % (0-3); HEMATOCRIT 30.8 % (36.0-47.0); HEMOGLOBIN 10.4 g/dL (12.0-15.5); LYMPH # 3.8 x10^3/uL (1.0-4.8); LYMPH % 24 % (24-48); MEAN CORPUSCULAR HEMOGLOBIN 30 pg (25-35); MEAN CORPUSCULAR HGB CONC 34 g/dL (31-37); MEAN CORPUSCULAR VOLUME 88 fL (79-100); MONO % 7 % (0-9); NEUT # 10.6 x10^3/uL (1.8-7.7); NEUT % 68 % (31-73); PLATELET COUNT 191 x10^3/uL (140-400); RED CELL DISTRIBUTION WIDTH 13.5 % (11.5-14.5); WHITE BLOOD COUNT 15.6 x10^3/uL (4.0-11.0)
[2021-07-17 05:00] LABS: CALCIUM 7.7 mg/dL (8.5-10.1); CREATININE 0.9 mg/dL (0.6-1.0); GFR 64.5; POTASSIUM 3.5 mmol/L (3.5-5.1)
[2021-07-17] MEDS: PIPERACILLIN/TAZOBACTAM 3.375 GM in IV NORMAL SALINE 50ML 50 ML IV SCH ×3 (06:13→18:46)
[2021-07-17] MEDS: IV NORMAL SALINE 1000ML BAG 1,000 ML IV SCH ×3 (06:13→22:31)
[2021-07-17 07:15] VITALS: BP 128/41
[2021-07-17] MEDS: PANTOPRAZOLE 40 MG TABLET.DR. PO SCH (08:28)
[2021-07-17] MEDS: LACTOBACILLUS RHAMNOSUS GG 1 CAPSULE. PO SCH ×2 (08:28→22:31)
[2021-07-17] MEDS: POTASSIUM CHLORIDE 20 MEQ TABLET.ER. PO SCH (08:29)
[2021-07-17 10:23] VITALS: BP 110/45
--- NOTE | 2021-07-17 10:27 | PDOC ---
Date of Service: DATE: 07/17/21 TIME: 10:23 Subjective: Subjective: Feels brandyn "blah," gut still aches. Does admit it's a little better today. No n/v, no bleeding - hasn't stooled today. Tolerating clears - chicken broth gave her heartburn last night. Objective: Vital Signs: Vital Signs Date Time Temp Pulse Resp B/P (MAP) Pulse Ox O2 Delivery O2 Flow Rate FiO2 07/17/21 07:15 98.3 82 22 128/41 (70) 96 Room Air 98.3 Labs: Laboratory Tests Test 07/16/21 10:30 07/16/21 12:39 07/16/21 17:20 07/17/21 03:38 Stool Campylobacter PCR Negative Stool E. coli Shiga Toxins (PCR) Negative Stool Salmonella PCR Negative Stool Shigella PCR Negative Clostridium difficile Toxin (PCR) Negative SARS-CoV-2 RNA (LORENZO) Negative SARS-CoV-2 Antigen (Rapid) Negative Potassium Level 2.9 mmol/L 3.5 mmol/L Magnesium Level 1.7 mg/dL White Blood Count 15.6 x10^3/uL Red Blood Count 3.50 x10^6/uL Hemoglobin 10.4 g/dL Hematocrit 30.8 % Mean Corpuscular Volume 88 fL Mean Corpuscular Hemoglobin 30 pg Mean Corpuscular Hemoglobin Concent 34 g/dL Red Cell Distribution Width 13.5 % Platelet Count 191 x10^3/uL Neutrophils (%) (Auto) 68 % Lymphocytes (%) (Auto) 24 % Monocytes (%) (Auto) 7 % Eosinophils (%) (Auto) 1 % Basophils (%) (Auto) 0 % Neutrophils # (Auto) 10.6 x10^3/uL Lymphocytes # (Auto) 3.8 x10^3/uL Monocytes # (Auto) 1.0 x10^3/uL Eosinophils # (Auto) 0.1 x10^3/uL Basophils # (Auto) 0.0 x10^3/uL Sodium Level 140 mmol/L Chloride Level 105 mmol/L Carbon Dioxide Level 30 mmol/L Anion Gap 5 Blood Urea Nitrogen 7 mg/dL Creatinine 0.9 mg/dL Estimated GFR (Cockcroft-Gault) 64.5 Glucose Level 86 mg/dL Calcium Level 7.7 mg/dL PE: GEN: NAD LUNGS: CTAB HEART: RRR ABD: NABS, S/ND/NT NEURO/PSYCH: A & O 3 A/P: Lower abdominal pain - better Diarrhea/hematochezia - resolved? - stool studies negative Leukocytosis (better), ACD/ADIN Colitis on CT H/o IBS, chronic pain Hypokalemia - resolved -- Try advancing diet. Consider outpt 'scopes. Justicifation of Admission Dx: Justifications for Admission: Justification of Admission Dx: Yes THERESA BOSTON Jul 17, 2021 10:27
[2021-07-17] MEDS ORDERED: MAGNESIUM SULFATE 1GM 100 ML IV ONE (11:30)
--- NOTE | 2021-07-17 12:34 | PDOC ---
[facility] PROGRESS NOTE Date of Service DOS: DATE: 07/17/21 TIME: 12:30 Chief Complaint Chief Complaint Colitis Hematochezia HTN HLD Plan: Consultation to GI Continue Zosyn for broad intra-abdominal coverage Continue clear liquid diet -DVT prophylaxis -Home meds resumed as indicated History of Present Illness History of Present Illness This patient is a 56-year-old female who presented to the emergency room this morning due to 1 day history of hematochezia. Patient's is currently admitted to this hospital and she was here visiting him yesterday and ate a salad for lunch. Said a few hours after eating she started to have lower quadrant abdominal pain. Initially left lower quadrant but spread out. Had a bowel movement that evening and it was full of bright red blood. Initially did not present to the emergency room however she had another bloody bowel movement this morning and presented the emergency room. Patient found to have colitis on CT scan. She had 1 further bloody bowel movement in the emergency room. Leukocytosis up to 24. When I evaluated the patient she was resting in bed reporting some ongoing abdominal pain. She told me that she went to the bathroom about an hour ago and there was no blood in it. Still having a fair bit of abdominal pain. Patient denies any history of diverticulitis. She had a correction of a duodenal malrotation many years ago. Normal colonoscopy 7 years ago. Was denying any sort of headache, vision changes, fevers, chest pain, shortness of breath dysuria or joint pain. 07/16/2021: Afebrile, currently breathing room air. Still reports episodes of diarrhea; stool studies pending. Patient also complains of cough, headache, and body aches; will swab for COVID-19. Leukocytosis improved; WBC 16.6 today. Potassium 2.7 today, hemoglobin 11.0. Will replace potassium. Continue Zosyn. Continue with clear liquid diet and PPI. 07/17/2021: Patient denies any further bloody stools. Stool studies have been negative. Magnesium 1.7, will replace. Leukocytosis continues to improve. She is feeling better, will try advancing diet. Continue IV Zosyn. When able to tolerate will discharge on Cipro and Flagyl, with GI follow-up for outpatient scope. Vitals/I&O Vitals/I&O: Vital Signs Date Time Temp Pulse Resp B/P (MAP) Pulse Ox O2 Delivery O2 Flow Rate FiO2 07/17/21 10:23 99.6 79 16 110/45 (66) 93 Room Air 99.6 I & O 07/16/21 07/16/21 07/17/21 15:00 23:00 07:00 Intake Total 320 ml 700 ml 590 ml Balance 320 ml 700 ml 590 ml Physical Exam General: Alert, mild distress Heart: Regular rate Lungs: Clear Abdomen: Soft, No hepatosplenomegaly Extremities: No clubbing, No cyanosis Skin: No rashes, No breakdown Labs Labs: Laboratory Tests Test 07/16/21 12:39 07/16/21 17:20 07/17/21 03:38 SARS-CoV-2 RNA (LORENZO) Negative (Negative) SARS-CoV-2 Antigen (Rapid) Negative (NEGATIVE) Potassium Level 2.9 mmol/L (3.5-5.1) 3.5 mmol/L (3.5-5.1) Magnesium Level 1.7 mg/dL (1.8-2.4) White Blood Count 15.6 x10^3/uL (4.0-11.0) Red Blood Count 3.50 x10^6/uL (3.50-5.40) Hemoglobin 10.4 g/dL (12.0-15.5) Hematocrit 30.8 % (36.0-47.0) Mean Corpuscular Volume 88 fL (79-100) Mean Corpuscular Hemoglobin 30 pg (25-35) Mean Corpuscular Hemoglobin Concent 34 g/dL (31-37) Red Cell Distribution Width 13.5 % (11.5-14.5) Platelet Count 191 x10^3/uL (140-400) Neutrophils (%) (Auto) 68 % (31-73) Lymphocytes (%) (Auto) 24 % (24-48) Monocytes (%) (Auto) 7 % (0-9) Eosinophils (%) (Auto) 1 % (0-3) Basophils (%) (Auto) 0 % (0-3) Neutrophils # (Auto) 10.6 x10^3/uL (1.8-7.7) Lymphocytes # (Auto) 3.8 x10^3/uL (1.0-4.8) Monocytes # (Auto) 1.0 x10^3/uL (0.0-1.1) Eosinophils # (Auto) 0.1 x10^3/uL (0.0-0.7) Basophils # (Auto) 0.0 x10^3/uL (0.0-0.2) Sodium Level 140 mmol/L (136-145) Chloride Level 105 mmol/L (98-107) Carbon Dioxide Level 30 mmol/L (21-32) Anion Gap 5 (6-14) Blood Urea Nitrogen 7 mg/dL (7-20) Creatinine 0.9 mg/dL (0.6-1.0) Estimated GFR (Cockcroft-Gault) 64.5 Glucose Level 86 mg/dL (70-99) Calcium Level 7.7 mg/dL (8.5-10.1) Assessment and Plan Assessmemt and Plan Problems Medical Problems: (1) Abdominal pain Status: Acute (2) Colitis Status: Acute (3) Hematochezia Status: Acute Comment Review of Relevant I have reviewed the following items adam (where applicable) has been applied. Medications: Current Medications Medications (Trade) Dose Ordered Sig/Tiara Route PRN Reason Start Time Stop Time Status Last Admin Dose Admin Pantoprazole Sodium (Protonix) 40 mg DAILYAC PO 07/17/21 07:30 07/17/21 08:28 Potassium Chloride (Klor-Con) 40 meq DAILYWBKFT PO 07/17/21 08:00 07/17/21 08:29 Potassium Chloride/Water 100 ml @ 100 mls/hr Q1H IV 07/16/21 19:00 07/16/21 22:59 DC 07/17/21 02:05 Magnesium Sulfate/ Dextrose 100 ml @ 100 mls/hr 1X ONCE IV 07/17/21 11:30 07/17/21 12:29 DC 07/17/21 12:04 Justifications for Admission Other Justification DENISE JACOBS MD Jul 17, 2021 12:34
[2021-07-17 14:28] VITALS: BP 117/46
[2021-07-17 19:20] VITALS: BP 114/43
[2021-07-17] MEDS: ALPRAZolam 0.5 MG TABLET PO PRN (22:31)
[2021-07-17 23:12] VITALS: BP 113/45
[2021-07-18] MEDS: PIPERACILLIN/TAZOBACTAM 3.375 GM in IV NORMAL SALINE 50ML 50 ML IV SCH ×3 (00:28→13:31)
[2021-07-18] MEDS: IV NORMAL SALINE 1000ML BAG 1,000 ML IV SCH ×2 (02:15→05:14)
[2021-07-18] MEDS: oxyCODONE IR 5 MG TABLET PO PRN ×2 (02:48→09:33)
[2021-07-18 03:03] VITALS: BP 114/50
[2021-07-18] MEDS: PANTOPRAZOLE 40 MG TABLET.DR. PO SCH (05:13)
[2021-07-18 07:34] VITALS: BP 129/54
[2021-07-18] MEDS: POTASSIUM CHLORIDE 20 MEQ TABLET.ER. PO SCH (09:11)
[2021-07-18] MEDS: LACTOBACILLUS RHAMNOSUS GG 1 CAPSULE. PO SCH (09:11)
--- NOTE | 2021-07-18 09:57 | NUR ---
SW following. Discussed with RN, pt from home with , room air, full liquid diet. RN advised no SW needs, anticipates discharge home today with self care.
--- NOTE | 2021-07-18 10:04 | PDOC ---
Date of Service: DATE: 07/18/21 TIME: 10:01 Subjective: Subjective: Had a splattery stool without blood. Some increased abdominal aching overnight. Better this morning. Trying full liquids. Thinks advancing diet yesterday (from clears to fulls) made pain worse. Thinks she's better overall. Taking PO pain meds. Objective: Vital Signs: Vital Signs Date Time Temp Pulse Resp B/P (MAP) Pulse Ox O2 Delivery O2 Flow Rate FiO2 07/18/21 07:34 98.0 70 16 129/54 (79) 94 Room Air 98.0 PE: GEN: NAD LUNGS: CTAB HEART: RRR ABD: S/ND/NT NEURO/PSYCH: A & O 3 A/P: Colitis - some lingering lower abd discomfort, diarrhea/hematochezia resolving ACD/ADIN H/o IBS and chronic pain -- Continue support, consider DC soon. Justicifation of Admission Dx: Justifications for Admission: Justification of Admission Dx: Yes THERESA BOSTON Jul 18, 2021 10:03
[2021-07-18 10:41] LABS: BASO % 0 % (0-3); EOS # 0.2 x10^3/uL (0.0-0.7); EOS % 3 % (0-3); HEMATOCRIT 30.4 % (36.0-47.0); HEMOGLOBIN 10.2 g/dL (12.0-15.5); LYMPH # 1.9 x10^3/uL (1.0-4.8); LYMPH % 23 % (24-48); MEAN CORPUSCULAR HEMOGLOBIN 29 pg (25-35); MEAN CORPUSCULAR HGB CONC 34 g/dL (31-37); MEAN CORPUSCULAR VOLUME 87 fL (79-100); MONO # 0.7 x10^3/uL (0.0-1.1); MONO % 9 % (0-9); NEUT # 5.3 x10^3/uL (1.8-7.7); NEUT % 65 % (31-73); PLATELET COUNT 222 x10^3/uL (140-400); RED CELL DISTRIBUTION WIDTH 13.2 % (11.5-14.5); WHITE BLOOD COUNT 8.1 x10^3/uL (4.0-11.0)
[2021-07-18 10:58] LABS: CALCIUM 7.6 mg/dL (8.5-10.1); CREATININE 0.7 mg/dL (0.6-1.0); GFR 86.2
--- NOTE | 2021-07-18 11:10 | PDOC ---
[facility] PROGRESS NOTE Date of Service DOS: DATE: 07/18/21 TIME: 11:07 Chief Complaint Chief Complaint Colitis Hematochezia HTN HLD Plan: Consultation to GI Continue Zosyn for broad intra-abdominal coverage Continue clear liquid diet -DVT prophylaxis -Home meds resumed as indicated History of Present Illness History of Present Illness This patient is a 56-year-old female who presented to the emergency room this morning due to 1 day history of hematochezia. Patient's is currently admitted to this hospital and she was here visiting him yesterday and ate a salad for lunch. Said a few hours after eating she started to have lower quadrant abdominal pain. Initially left lower quadrant but spread out. Had a bowel movement that evening and it was full of bright red blood. Initially did not present to the emergency room however she had another bloody bowel movement this morning and presented the emergency room. Patient found to have colitis on CT scan. She had 1 further bloody bowel movement in the emergency room. Leukocytosis up to 24. When I evaluated the patient she was resting in bed reporting some ongoing abdominal pain. She told me that she went to the bathroom about an hour ago and there was no blood in it. Still having a fair bit of abdominal pain. Patient denies any history of diverticulitis. She had a correction of a duodenal malrotation many years ago. Normal colonoscopy 7 years ago. Was denying any sort of headache, vision changes, fevers, chest pain, shortness of breath dysuria or joint pain. 07/16/2021: Afebrile, currently breathing room air. Still reports episodes of diarrhea; stool studies pending. Patient also complains of cough, headache, and body aches; will swab for COVID-19. Leukocytosis improved; WBC 16.6 today. Potassium 2.7 today, hemoglobin 11.0. Will replace potassium. Continue Zosyn. Continue with clear liquid diet and PPI. 07/17/2021: Patient denies any further bloody stools. Stool studies have been negative. Magnesium 1.7, will replace. Leukocytosis continues to improve. She is feeling better, will try advancing diet. Continue IV Zosyn. When able to tolerate will discharge on Cipro and Flagyl, with GI follow-up for outpatient scope. 07/18/2021: States she feels improved today, denies significant pain. Having non-bloody bowel movements. Will recheck CBC and BMP to assure electrolytes and hemoglobin within safe levels. Feels comfortable discharging home today. States she had a follow-up appointment with her PCP today. Continue liquid diet and advance as tolerated. Recommend follow-up with PCP within 5 to 7 days, and follow-up with GI as outpatient. >30 minutes spent managing the discharge of this patient. Vitals/I&O Vitals/I&O: Vital Signs Date Time Temp Pulse Resp B/P (MAP) Pulse Ox O2 Delivery O2 Flow Rate FiO2 07/18/21 07:34 98.0 70 16 129/54 (79) 94 Room Air 98.0 I & O 07/17/21 07/17/21 07/18/21 15:00 23:00 07:00 Intake Total 540 ml 480 ml Balance 540 ml 480 ml Physical Exam General: Alert, No acute distress Heart: Regular rate Lungs: Clear Abdomen: Soft, No hepatosplenomegaly Extremities: No clubbing, No cyanosis Skin: No rashes, No breakdown Labs Labs: Laboratory Tests Test 07/18/21 10:05 White Blood Count 8.1 x10^3/uL (4.0-11.0) Red Blood Count 3.50 x10^6/uL (3.50-5.40) Hemoglobin 10.2 g/dL (12.0-15.5) Hematocrit 30.4 % (36.0-47.0) Mean Corpuscular Volume 87 fL (79-100) Mean Corpuscular Hemoglobin 29 pg (25-35) Mean Corpuscular Hemoglobin Concent 34 g/dL (31-37) Red Cell Distribution Width 13.2 % (11.5-14.5) Platelet Count 222 x10^3/uL (140-400) Neutrophils (%) (Auto) 65 % (31-73) Lymphocytes (%) (Auto) 23 % (24-48) Monocytes (%) (Auto) 9 % (0-9) Eosinophils (%) (Auto) 3 % (0-3) Basophils (%) (Auto) 0 % (0-3) Neutrophils # (Auto) 5.3 x10^3/uL (1.8-7.7) Lymphocytes # (Auto) 1.9 x10^3/uL (1.0-4.8) Monocytes # (Auto) 0.7 x10^3/uL (0.0-1.1) Eosinophils # (Auto) 0.2 x10^3/uL (0.0-0.7) Basophils # (Auto) 0.0 x10^3/uL (0.0-0.2) Sodium Level 142 mmol/L (136-145) Potassium Level 3.0 mmol/L (3.5-5.1) Chloride Level 105 mmol/L (98-107) Carbon Dioxide Level 28 mmol/L (21-32) Anion Gap 9 (6-14) Blood Urea Nitrogen 3 mg/dL (7-20) Creatinine 0.7 mg/dL (0.6-1.0) Estimated GFR (Cockcroft-Gault) 86.2 Glucose Level 118 mg/dL (70-99) Calcium Level 7.6 mg/dL (8.5-10.1) Magnesium Level 1.6 mg/dL (1.8-2.4) Assessment and Plan Assessmemt and Plan Problems Medical Problems: (1) Abdominal pain Status: Acute (2) Colitis Status: Acute (3) Hematochezia Status: Acute Comment Review of Relevant I have reviewed the following items adam (where applicable) has been applied. Medications: Current Medications Medications (Trade) Dose Ordered Sig/Tiara Route PRN Reason Start Time Stop Time Status Last Admin Dose Admin Magnesium Sulfate/ Dextrose 100 ml @ 100 mls/hr 1X ONCE IV 07/17/21 11:30 07/17/21 12:29 DC 07/17/21 12:04 Justifications for Admission Other Justification DENISE JACOBS MD Jul 18, 2021 11:10
--- NOTE | 2021-07-18 11:13 | PDOC3 ---
Discharge Summary Visit Information Date of Admission: Jul 15, 2021 Date of Discharge: Jul 18, 2021 Final Diagnosis Problems Medical Problems: (1) Abdominal pain Status: Acute (2) Colitis Status: Acute (3) Hematochezia Status: Acute Brief Hospital Course Allergies Allergies Coded Allergies Type Severity Reaction Last Updated Verified Tetanus Vaccines and Toxoid Allergy Intermediate 10/20/14 Yes amoxicillin Allergy Intermediate light headed gi upset 10/20/14 Yes hydromorphone Allergy Intermediate itching puritis 10/20/14 Yes levalbuterol Allergy Intermediate hypertension 10/20/14 Yes levofloxacin Allergy Intermediate joint pain 10/13/14 Yes metaxalone Allergy Intermediate rash 10/13/14 Yes nabumetone Allergy Intermediate chest pressure 10/13/14 Yes nitrofurantoin Allergy Intermediate perepheral neuropathy 10/13/14 Yes pregabalin Allergy Intermediate rash 10/13/14 Yes telithromycin Allergy Intermediate blurred vision 10/13/14 Yes zolpidem Allergy Intermediate chest pain cough sob 10/13/14 Yes Vital Signs Vital Signs Date Time Temp Pulse Resp B/P (MAP) Pulse Ox O2 Delivery O2 Flow Rate FiO2 07/18/21 07:34 98.0 70 16 129/54 (79) 94 Room Air 98.0 Lab Results Laboratory Tests Test 07/16/21 12:39 07/16/21 17:20 07/17/21 03:38 07/18/21 10:05 SARS-CoV-2 RNA ([facility]ORENZO) Negative (Negative) SARS-CoV-2 Antigen (Rapid) Negative (NEGATIVE) Potassium Level 2.9 mmol/L (3.5-5.1) 3.5 mmol/L (3.5-5.1) 3.0 mmol/L (3.5-5.1) Magnesium Level 1.7 mg/dL (1.8-2.4) 1.6 mg/dL (1.8-2.4) White Blood Count 15.6 x10^3/uL (4.0-11.0) 8.1 x10^3/uL (4.0-11.0) Red Blood Count 3.50 x10^6/uL (3.50-5.40) 3.50 x10^6/uL (3.50-5.40) Hemoglobin 10.4 g/dL (12.0-15.5) 10.2 g/dL (12.0-15.5) Hematocrit 30.8 % (36.0-47.0) 30.4 % (36.0-47.0) Mean Corpuscular Volume 88 fL (79-100) 87 fL (79-100) Mean Corpuscular Hemoglobin 30 pg (25-35) 29 pg (25-35) Mean Corpuscular Hemoglobin Concent 34 g/dL (31-37) 34 g/dL (31-37) Red Cell Distribution Width 13.5 % (11.5-14.5) 13.2 % (11.5-14.5) Platelet Count 191 x10^3/uL (140-400) 222 x10^3/uL (140-400) Neutrophils (%) (Auto) 68 % (31-73) 65 % (31-73) Lymphocytes (%) (Auto) 24 % (24-48) 23 % (24-48) Monocytes (%) (Auto) 7 % (0-9) 9 % (0-9) Eosinophils (%) (Auto) 1 % (0-3) 3 % (0-3) Basophils (%) (Auto) 0 % (0-3) 0 % (0-3) Neutrophils # (Auto) 10.6 x10^3/uL (1.8-7.7) 5.3 x10^3/uL (1.8-7.7) Lymphocytes # (Auto) 3.8 x10^3/uL (1.0-4.8) 1.9 x10^3/uL (1.0-4.8) Monocytes # (Auto) 1.0 x10^3/uL (0.0-1.1) 0.7 x10^3/uL (0.0-1.1) Eosinophils # (Auto) 0.1 x10^3/uL (0.0-0.7) 0.2 x10^3/uL (0.0-0.7) Basophils # (Auto) 0.0 x10^3/uL (0.0-0.2) 0.0 x10^3/uL (0.0-0.2) Sodium Level 140 mmol/L (136-145) 142 mmol/L (136-145) Chloride Level 105 mmol/L (98-107) 105 mmol/L (98-107) Carbon Dioxide Level 30 mmol/L (21-32) 28 mmol/L (21-32) Anion Gap 5 (6-14) 9 (6-14) Blood Urea Nitrogen 7 mg/dL (7-20) 3 mg/dL (7-20) Creatinine 0.9 mg/dL (0.6-1.0) 0.7 mg/dL (0.6-1.0) Estimated GFR (Cockcroft-Gault) 64.5 86.2 Glucose Level 86 mg/dL (70-99) 118 mg/dL (70-99) Calcium Level 7.7 mg/dL (8.5-10.1) 7.6 mg/dL (8.5-10.1) Laboratory Tests Test 07/18/21 10:05 White Blood Count 8.1 x10^3/uL (4.0-11.0) Red Blood Count 3.50 x10^6/uL (3.50-5.40) Hemoglobin 10.2 g/dL (12.0-15.5) Hematocrit 30.4 % (36.0-47.0) Mean Corpuscular Volume 87 fL (79-100) Mean Corpuscular Hemoglobin 29 pg (25-35) Mean Corpuscular Hemoglobin Concent 34 g/dL (31-37) Red Cell Distribution Width 13.2 % (11.5-14.5) Platelet Count 222 x10^3/uL (140-400) Neutrophils (%) (Auto) 65 % (31-73) Lymphocytes (%) (Auto) 23 % (24-48) Monocytes (%) (Auto) 9 % (0-9) Eosinophils (%) (Auto) 3 % (0-3) Basophils (%) (Auto) 0 % (0-3) Neutrophils # (Auto) 5.3 x10^3/uL (1.8-7.7) Lymphocytes # (Auto) 1.9 x10^3/uL (1.0-4.8) Monocytes # (Auto) 0.7 x10^3/uL (0.0-1.1) Eosinophils # (Auto) 0.2 x10^3/uL (0.0-0.7) Basophils # (Auto) 0.0 x10^3/uL (0.0-0.2) Sodium Level 142 mmol/L (136-145) Potassium Level 3.0 mmol/L (3.5-5.1) Chloride Level 105 mmol/L (98-107) Carbon Dioxide Level 28 mmol/L (21-32) Anion Gap 9 (6-14) Blood Urea Nitrogen 3 mg/dL (7-20) Creatinine 0.7 mg/dL (0.6-1.0) Estimated GFR (Cockcroft-Gault) 86.2 Glucose Level 118 mg/dL (70-99) Calcium Level 7.6 mg/dL (8.5-10.1) Magnesium Level 1.6 mg/dL (1.8-2.4) Brief Hospital Course Ms. Vazquez is a 56 old female who presented with colitis and hematochezia. Consultation placed to GI. She was treated with IV antibiotics and bowel rest. Her hemoglobin did drop slightly not to level to require transfusion (10.2). Her pain improved with IV antibiotics and supportive care. Leukocytosis resolved. Stool studies were negative for E. coli, Shigella, Salmonella, and Campylobacter. C. difficile was negative. She was recommended to follow-up with her PCP within 5 to 7 days, and follow-up with GI as outpatient. Discharge Information Condition at Discharge: Improved Disposition/Orders: D/C to Home Scheduled Alprazolam (Xanax) 0.5 Mg Tablet, 0.5 MG PO TID PRN for ANXIETY, (Reported) Last dose 10/20/14 at 7:45 pm next dose may be taken any time as directed by doctor. Entered as Reported by: MICHAEL ALVAREZ on 02/08/14 1123 Last Action: Continued on 07/15/211410 by TOMY RIDER MD Cyclobenzaprine Hcl (Cyclobenzaprine Hcl) 10 Mg Tablet, 10 MG PO TID PRN for MUSCLE SPASMS, (Reported) Last dose 10/21/14 at 4:30 am. Next dose may be taken any time as directed by doctor. Entered as Reported by: MICHAEL ALVAREZ on 02/08/14 1119 Last Action: Continued on 07/15/21 141 by TOMY RIDER MD Ibuprofen (Ibuprofen) 800 Mg Tablet, 800 MG PO TID PRN for PAIN, (Reported) Do not take this medication. Do not take until okayed by Dr. Bales. Entered as Reported by: ARIEL BRITO on 10/21/14 1002 Last Action: HELD on 07/15/211410 by TOMY RIDER MD Pantoprazole Sodium (Pantoprazole Sodium ) 40 Mg Tablet.dr, 20 MG PO DAILY for GERD, (Reported) Last dose 10/21/14 at 9 am. Next dose due 10/22/14 at 9 am. Entered as Reported by: MICHAEL ALVAREZ on 02/08/14 1127 Last Action: HELD on 07/15/211410 by TOMY RIDER MD Scheduled PRN Loratadine (Loratadine) 10 Mg Tablet, 10 MG PO HS PRN for ALLERGIES, (Reported) Last dose 10/20/14 at 9 pm. Next dose due 10/21/14 at 9 pm. Entered as Reported by: MICHAEL ALVAREZ on 02/08/14 1125 Last Action: Converted on 07/15/211410 by TOMY RIDER MD Oxycodone/Apap 10-325 (Percocet 10-325 Mg Tablet ) 1 Each Tablet, 1 TAB PO PRN Q6HRS PRN for PAIN, Ref 0 (Reported) Entered as Reported by: LAY VALENZUELA on 05/20/16 1034 Last Action: HELD on 07/15/211410 by TOMY RIDER MD Justicifation of Admission Dx: Justifications for Admission: Justification of Admission Dx: Yes DENISE JACOBS MD Jul 18, 2021 11:13
[2021-07-18] MEDS ORDERED: CALCIUM CARBONATE 500 MG TABLET PO ONE (13:00)
[2021-07-18 15:00] VITALS: BP 136/62
== END 2021-07-18 14:35 | disposition home or self-care (01) | DRG 392 ==
LOC: ER 08:37 → ED HOLD 10:23 → 4 NORTH 11:11
PROVIDERS: ADMIT Student in an Organized Health Care Education/Training Program; ATTEND Student in an Organized Health Care Education/Training Program
DX: K52.9 Noninfective gastroenteritis and colitis, unspecified (principal); K92.1 Melena; G89.29 Other chronic pain; M54.9 Dorsalgia, unspecified; E78.5 Hyperlipidemia, unspecified; I10 Essential (primary) hypertension; R05 Cough; M62.838 Other muscle spasm; K76.89 Other specified diseases of liver; K64.9 Unspecified hemorrhoids; D50.9 Iron deficiency anemia, unspecified; D72.829 Elevated white blood cell count, unspecified; E87.6 Hypokalemia; K21.9 Gastro-esophageal reflux disease without esophagitis; D63.8 Anemia in other chronic diseases classified elsewhere; R63.0 Anorexia; Z20.822 Contact with and (suspected) exposure to COVID-19; Z90.49 Acquired absence of other specified parts of digestive tract; Z79.891 Long term (current) use of opiate analgesic; Z68.33 Body mass index [BMI] 33.0-33.9, adult; Z88.4 Allergy status to anesthetic agent; Z88.5 Allergy status to narcotic agent; Z88.7 Allergy status to serum and vaccine; Z88.8 Allergy status to other drugs, medicaments and biological substances; Z82.49 Family history of ischemic heart disease and other diseases of the circulatory system
CPT/HCPCS: 36415; 74174; 80048; 80053; 81001; 83540; 83550; 83605; 83735; 84132; 85007; 85025; 85027; 86850; 86900; 86901; 87205; 87426; 87493; 87505; 93005; 96361; 96374; 96375; 96376; C9113; J2270; J2405; J2543; J3010; J3475; J3480; J7030; Q9967; U0003; U0005; 99285-25; G0378